=== PATIENT | female | born 1990 | race African-American/Black ===

== ENCOUNTER 2017-08-27 13:02 | Emergency (ER) | payer SELFPAY ==
[~2017-08-27] VITALS: Ht 175.3 cm; Wt 113.4 kg
== END 2017-08-27 13:59 | disposition short-term general hospital (02) ==
LOC: ER 13:02 → FSED 13:59
DX: R50.9 Fever, unspecified (principal); R05 Cough; R19.7 Diarrhea, unspecified; R11.0 Nausea